=== PATIENT | male | born 1980 ===

== ENCOUNTER 2017-03-24 06:33 | Inpatient (IN) | payer OTHER ==
[~2017-03-24] VITALS: Ht 177.8 cm; Wt 78.9 kg
[2017-03-24] VITALS (19 sets, daily range): BP systolic 106–125; BP diastolic 52–95
[~2017-03-24 06:33] MED LIST: LR 1000ml 1,000 ML IV SCH
[2017-03-24] MEDS ORDERED: ceFAZolin sod 2 GM in D5W 110 ML IVPB ONE (07:00)
[2017-03-24] MEDS ORDERED: Thrombin 5000 units TOPIC ONE (07:26)
[2017-03-24] MEDS ORDERED: Vancomycin 1gm inj IVPB ONE (07:27)
[2017-03-24] MEDS ORDERED: Gelfoam Absorbable 1gm powder pkt TOPIC ONE ×2 (07:27→10:43)
[2017-03-24] MEDS ORDERED: Thrombin 5000 units spray kit TOPIC ONE ×2 (07:27→10:43)
[2017-03-24] MEDS ORDERED: Bacitracin 50000 Units Vial ONE (07:27)
[2017-03-24] MEDS ORDERED: Bupivacaine w/Epi 0.5% 30ml Vial INJ ONE (07:27)
[2017-03-24] MEDS ORDERED: NKM (07:31)
[2017-03-24] MEDS ORDERED: Bacitracin Oint 15gm Tube TOPIC ONE (07:34)
[2017-03-24] MEDS ORDERED: TRAMADOL HCL50 MG ORAL (07:54)
[2017-03-24] MEDS ORDERED: OMEPRAZOLE20 M3 ORAL (07:54)
[2017-03-24] MEDS ORDERED: IBUPROFEN800 M1 PO (07:54)
--- NOTE | 2017-03-24 08:30 | Pre-Procedure Note/Attestation ---
Pre-Procedure Note/Attestation Complete Prior to Procedure Procedure Narrative: C456 PSF, laminotomy Indications for Procedure Pre-Operative Diagnosis: c456 pseudoarthrosis Attestation I attest that I discussed the nature of the procedure; its benefits; risks and complications; and alternatives (and the risks and benefits of such alternatives ), prior to the procedure, with the patient (or the patient's legal motor vehicle representative). I attest that, if there was a reasonable possibility of needing a blood transfusion, the patient (or the patient's legal motor vehicle representative) was given the [facility] standardized written summary, pursuant to the Johnny Juliann Blood Safety Act ([place] Health and Safety Code # 1645, as amended). I attest that I re-evaluated the patient just prior to the surgery and that there has been no change in the patient's H&P, except as documented below: CURTIS LUCERO Mar 24, 2017 08:30
[2017-03-24] MEDS ORDERED: LR 1000ml 1,000 ML IVLG SCH (10:18)
--- NOTE | 2017-03-24 10:25 | Anethesia Preoperative Eval ---
Anesthesia Pre-op PMH/ROS General Date of Evaluation: Mar 24, 2017 Time of Evaluation: 08:20 Anesthesiologist: Gael ASA Score: ASA 1 Mallampati Score Class I : Soft palate, uvula, fauces, pillars visible Class II: Soft palate, uvula, fauces visible Class III: Soft palate, base of uvula visible Class IV: Only hard plate visible Mallampati Classification: Class II Surgeon: Trey Diagnosis: Cervical radiculopathy Surgical Procedure: Posterior cervical fusion with instrumentation Family History: no anesthesia problems Allergies: Coded Allergies: NAPROXEN (Verified Allergy, Severe, swelling/ rash, 03/24/17) Medications: see eMAR Past Medical History Cardiovascular: Denies: CAD, HTN, TN, arrhythmia, other, valve dz Pulmonary: Denies: COPD, APRIL, asthma, other Gastrointestinal/Genitourinary: Denies: CRI, ESRD, GERD, other Neurologic/Psychiatric: Denies: CVA, TIA, dementia, depression/anxiety, other Endocrine: Denies: DM, hypothyroidism, other, steroids HEENT: Denies: EAGLE (L), EAGLE (R), cataract (L), cataract (R), glaucoma, other Hematology/Immune: Denies: DVT, anemia, bleeding disorder, other Musculoskeletal/Integumentary: Denies: DDD, DJD, OA, RA, edema, other PMH Narrative: Denies significant PMH PSxH Narrative: ACDF Anesthesia Pre-op Phys. Exam Physician Exam Last Vital Signs Date Time Temp Pulse Resp B/P Pulse Ox O2 Delivery O2 Flow Rate FiO2 03/24/17 07:08 97.1 68 18 109/73 99 Room Air Constitutional: NAD Neurologic: CN 2-12 intact Cardiovascular: RRR, no M/R/G Respiratory: CTA Gastrointestinal: S/NT/ND Airway Exam Mallampati Score: Class II MO: full ROM: full Teeth: intact Anesthesia Pre-op A/P Labs WNL Studies Pre-op Studies: EKG - NSR Risk Assessment & Plan Assessment: Healthy male for posterior cervical fusion Plan: GETA, Applegate scope intubation, SedLine monitor Status Change Before Surgery: No Pre-Antibiotics Drug: Ancef Given Within 1 Hr of Incision: Yes Time Given: 08:30 JIMMY TOLENTINO M.D. Mar 24, 2017 10:25
--- NOTE | 2017-03-24 10:26 | Immediate Post-Op Evaluation ---
Immediate Post-Op Evalulation Immediate Post-Op Evalulation Procedure: Posterior cervical fusion with instrumentation Date of Evaluation: Mar 24, 2017 Time of Evaluation: 12:25 IV Fluids: 1300 Urinary Output: 500 Blood Pressure Systolic: 125 Blood Pressure Diastolic: 90 Pulse Rate: 98 Respiratory Rate: 14 O2 Sat by Pulse Oximetry: 100 Temperature (Fahrenheit): 97.2 Pain Score (1-10): 0 Nausea: No Vomiting: No Complications No complication Patient Status: reacts, patent, extubated, none Hydration Status: adequate Drug: Ancef Given Within 1 Hr of Incision: Yes Time Given: 08:30 JIMMY TOLENTINO M.D. Mar 24, 2017 10:26
[2017-03-24] MEDS ORDERED: LORazepam Inj 2mg/ml 1ml IV PRN ×2 (10:30)
[2017-03-24] MEDS ORDERED: LR 1000ml 1,000 ML IV SCH (10:30)
--- NOTE | 2017-03-24 11:54 | Brief Operative Note ---
Immediate Post Operative Note Operative Note Pre-op Diagnosis: c456 pseudoarthrosis Procedure: c456 PSF, B c56 laminoforaminotomy Post-op Diagnosis: same as pre-op Findings: consistent w/pre-op dx studies Surgeon: concepcion Anesthesiologist: solitario Anesthesia: general Specimen: none Complications: none Condition: stable Estimated Blood Loss: volume - 500 Drains: hemovac Implant(s) used?: Yes - bacterin bone, spinal elements screws CURTIS LUCERO Mar 24, 2017 11:54
[2017-03-24] MEDS ORDERED: traMADol 50mg tab ORAL PRN ×2 (12:00→22:15)
[2017-03-24] MEDS ORDERED: Hydromorphone 0.5mg/0.5ml inj ONE (12:39)
[2017-03-24] MEDS: Hydromorphone 0.5mg/0.5ml inj IVP PRN ×2 (12:44→13:03)
[2017-03-24] MEDS: Meperidine 25mg/0.5ml Inj IV PRN ×2 (12:49→13:19)
[2017-03-24] MEDS ORDERED: HYDROmorphone 1mg/ml Carpuject IVP PRN (15:00)
--- NOTE | 2017-03-24 15:15 | Diagnostic Imaging Report ---
Indications: Neck and bilateral upper extremity pain, posterior cervical fusion Technique: Above procedure including fluoroscopy performed by Dr. Yang. Portable intraoperative spot film images of the cervical spine performed in PA and lateral projections. Findings: Comparison: None Initial image demonstrates prior fusion of the C4-5 and C5-6 disc spaces, surgical implement overlying the posterior elements at the C4-5 level. Subsequent images demonstrate placement of bilateral pedicle screws at C4-C6, bridged by longitudinal rods bilaterally. IMPRESSION: Surgical changes as described
[2017-03-24] MEDS ORDERED: HYDROmorphone 1mg/ml Carpuject SUBQ PRN ×2 (15:30→22:15)
[2017-03-24] MEDS ORDERED: Metoclopramide 10mg/2ml Inj IVP PRN (15:30)
[2017-03-24] MEDS ORDERED: Acetaminophen 650 MG SUPP RECTAL PRN (15:30)
[2017-03-24] MEDS ORDERED: Milk of Magnesia 30ml Ud ORAL PRN (15:30)
[2017-03-24] MEDS ORDERED: Norco 7.5mg/325mg tab ORAL PRN ×2 (15:30)
[2017-03-24] MEDS ORDERED: Norco 5mg/325mg tab ORAL PRN (15:30)
[2017-03-24] MEDS ORDERED: Naloxone 0.4mg/ml Inj IVP PRN (15:30)
[2017-03-24] MEDS: D5 1/2NS 1,000 ML IV SCH (16:11)
[2017-03-24] MEDS: ceFAZolin sod 1 GM in D5W 55 ML IV SCH (17:16)
[2017-03-24] MEDS: Docusate 100mg cap ORAL SCH (17:16)
--- NOTE | 2017-03-24 17:31 | Operative Note - Dictated ---
DATE OF OPERATION: 03/24/2017 PREOPERATIVE DIAGNOSES: 1. Status post cervical fusion C4 through C6 with pseudoarthrosis. 2. Broken hardware at C6. 3. 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 POSTOPERATIVE DIAGNOSES: 1. Status post cervical fusion C4 through C6 with pseudoarthrosis. 2. Broken hardware at C6. 3. 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 PROCEDURES: 1. Posterior segmental fusion C4 through C6. 2. Posterior segmental instrumentation using spinal elements and lateral mass screws. 3. Use of local autograft as well as Bacterin bone allograft. 4. Laminal foraminotomy bilaterally at C5 and C6 with foraminotomy at C5-C6. 5. Use of operating microscope. 6. Use of fluoroscopy. 7. Neurodiagnostic monitoring. ESTIMATED BLOOD LOSS: 500 mL. COMPLICATIONS: None. FINDINGS: 1. Notable gross movement at C5-C6. 2. Neovascularization with extensive epidural vein formation at left C5-C6. INDICATIONS: The patient is a very pleasant 37-year-old gentleman, who previously underwent two-level anterior cervical diskectomy and fusion at C4, C5, and C6. Pseudoarthrosis developed and subsidence at both levels, but primarily at C5-C6 as the patient has failed conservative care and had ongoing pain in neck with radiation to both upper extremities, right worse than left. Surgical intervention was recommended. The patient elected to proceed. RISK NOTE: The patient was explained in detail the risks and benefits of surgery to include, but not be limited to those of bleeding, infection, damage to nerves, vessels, tendons, anesthetic risk, allergic reaction, aspiration, and possibly . The patient understood and wished to proceed. OPERATIVE PROCEDURE IN DETAIL: The patient was taken to the operative suite. After general endotracheal anesthesia was obtained, Flores catheter was placed. Pressure Gao pins were attached in a sterile standard fashion. The patient was then turned prone on to a radiolucent table with chest bolsters. The Gao was attached to the head of table attachment. Knees were bent. All bony prominences were well padded. The posterior neck wound was prepped and draped in the usual sterile fashion. A midline incision was marked out at C3 through C7. The incision was sharply carried down through subcutaneous and subperiosteal dissection was carried out. Care was taken to avoid injury to the facet capsule at C3-C4 and at C6-C7. Fluoroscopic imaging verified positions. At this point, self-retaining retractors were put into place. All screw holes for the lateral masses were pre-drilled using the high-speed drill as well as a 12 mm drill. Bone wax was applied to all the screw holes. Please note that the C4 screws were applied (12 mm spinal element screws). At this point, the operating microscope was brought into place and using a high-speed drill, laminal foraminotomy was performed on the left first at C5 and C6 and the medial facetectomy was performed. Extensive epidural vein formation was encountered. FloSeal was applied to stop the epidural bleeding. Once satisfied with the decompression (as performed with high-speed drill, micro curettes, and Kerrison punch), the decision was made to pack this area and performed in an identical fashion laminal foraminotomy on the right side. Once this was completed, copious irrigation was performed. Meticulous hemostasis was achieved. High-speed drill was used to perform corticotomy of the lamina of C4, C5, and C6. A piece of Bacterin bone was cut in half after being reconstituted in saline and blood. Local autograft bone from the laminal foraminotomies was also harvested using an on spot bone trap. The bone graft was applied. The bone graft was measured and noted to fit appropriately. At this point prior to applying the bone graft, the pre-dural screw holes were filled with the appropriate sized 12 mm lateral mass screws at C5 and C6. The C4 screws were already in place. Fluoroscopically, they were noted to be in good position as verified. At this point, the appropriate sized rods were cut to length, applied to the screw heads, and the locking cap was applied and torqued to the appropriate level. Once satisfied, copious irrigation was performed. The bone graft was then applied onto the lamina as well as the interfacet space. Decision was made to close. The patient did receive a total of 1 g of vancomycin, 2/3 of which was placed subfascial and 1/3 of which was placed suprafascial. Fascia was repaired using #1 Vicryl. Please note that a subfascial Hemovac drain was applied and was sewn in. At this point, once the fascia was repaired, copious irrigation was performed. The remainder of the vancomycin was applied suprafascially. The skin was then repaired using 2-0 Vicryl and then with a running subcuticular 4-0 Monocryl. Dermabond was then applied. Sterile dressing was applied. Please note that drain was sewn in. At this time, the patient was detached from the Slater headrest and was turned onto his back. The Gao pins were then removed. No bleeding was encountered. The patient was subsequently awakened, extubated, and transferred to recovery room in stable condition. [facility] Jaclyn Yang DR: SIRISHA JOB#: [id number] CC:
[2017-03-24] MEDS ORDERED: Transderm Scop 1.5mg TDERMAL ONE ×2 (22:15→22:30)
[2017-03-24] MEDS ORDERED: oxyCODONE 5mg IR tab ORAL PRN (22:15)
[2017-03-24] MEDS ORDERED: Cyclobenzaprine 10mg Tab ORAL PRN (22:15)
[2017-03-24] MEDS ORDERED: Chloraseptic Spray 20mL Bottle ORAL PRN (22:15)
[2017-03-24] MEDS ORDERED: Norco 10mg/325mg tab ORAL PRN (22:15)
[2017-03-24] MEDS: HYDROmorphone 1mg/ml Carpuject SUBQ PRN (23:35)
[2017-03-25] VITALS: BP 110/69
[2017-03-25] MEDS: ceFAZolin sod 1 GM in D5W 55 ML IV SCH ×2 (00:28→10:27)
[2017-03-25] MEDS: D5 1/2NS 1,000 ML IV SCH ×3 (02:22→21:44)
[2017-03-25 04:00] VITALS: BP 113/68
--- NOTE | 2017-03-25 04:00 | Consultation ---
DATE OF CONSULTATION: 03/24/2017 CONSULTING PHYSICIAN: Sixto Zhao M.D. REFERRING PHYSICIAN: Awais Yang M.D. REASON FOR CONSULTATION: Acute pain consult. HISTORY OF PRESENT ILLNESS: Dear Dr. Awais Yang, Thank you kindly for consulting me to evaluate and render an opinion as to how to proceed in the management of the patient's acute postoperative cervical spine pain, revision cervical spine instrumentation surgery pain. The patient is a 37-year-old, gentleman with a lengthy history of neck pain after work-related injury. He underwent previous anterior cervical spine fusion surgery in 2014, but had persistent pain complaints. He began following with Dr. Fran Mallory, outpatient pain management, who placed him on a potent Butrans weekly opioid narcotic patch for severe pain control. The patient with chronic neck pain, on chronic opioid usage, often had difficulty with pain control. Such was the case with this patient today after his posterior cervical spine fusion surgery. Not unexpectedly with chronic opioid use, he complained of severe refractory pain despite multiple bolus doses of pain medications including Dilaudid. He consulted me at this time for acute pain consultation. I saw the patient at bedside. We performed a detailed history and physical examination. I spoke with multiple nurses and spent over 75 minutes in consultation with an additional 30 minutes in medical record review. PAST MEDICAL HISTORY: 1. Acute postoperative cervical spine pain, status post revision cervical spine surgery, posterior-approach by Dr. Awais Yang in February 2017. 2. Work-related injury. 3. Chronic neck pain with chronic opioid usage, followed by outpatient pain doctor Dr. Fran Mallory. MEDICATIONS AT HOME: 1. Butrans narcotic patch weekly 20 mg. 2. P.r.n. tramadol. 3. NSAIDS. ALLERGIES: Naproxen. PAST SURGICAL HISTORY: Anterior cervical spine surgery in 2014. SOCIAL HISTORY: The patient lives at home with his and children. He denies marijuana or tobacco usage. He drinks alcohol rarely. PAST SURGICAL HISTORY: Previous cervical spine surgery. REVIEW OF SYSTEMS: Per attending physician. FAMILY HISTORY: Noncontributory. PHYSICAL EXAMINATION: GENERAL: Age 37. Height 5 foot 9 inches. Weight 175 pounds. Body mass index 25. VITAL SIGNS: Pain level 8/10 on visual analog pain scale. Afebrile, pulse 84, respirations 20, blood pressure 106/52, and pulse oximetry 99% on supplemental oxygen. HEENT: Normocephalic and atraumatic. Posterior cervical spine dressing clean and dry with Hemovac drain holding suction. CHEST: Clear to auscultation. HEART: Regular rate and rhythm. ABDOMEN: Soft. Positive bowel sounds. GENITOURINARY: Deferred. NEUROLOGIC: Moved all extremities x4. Detailed neurologic exam per Dr. Yang. DIAGNOSTIC TESTING: Shows a 12-lead EKG, normal sinus rhythm, ventricular rate 68. No evidence for acute cardiac ischemia. Pulmonary function testing shows within normal limits. Normal spirometry, 03/20/2017. LABORATORY STUDIES: From 03/20/2017 shows glucose 83, BUN 13, creatinine 1.0, sodium 140, potassium 4.5, chloride 103, bicarbonate 28, and calcium 10.1. Total protein 7.9, albumin 4.6, total bilirubin 1.3, alkaline phosphatase 81, AST 62, ALT 65. INR 0.9 and PTT 25. White count 9, hematocrit 44, and platelets 350,000. IMPRESSION: 1. Acute postoperative cervical spine pain, status post revision cervical spine surgery, posterior-approach by Dr. Awais Yang in February 2017. 2. Work-related injury. 3. Chronic neck pain with chronic opioid usage, followed by outpatient pain doctor Dr. Fran Mallory. TREATMENT RECOMMENDATIONS: To help with this patient's pain control, I have devised the following analgesic plan. As the patient has been following with Dr. Fran Mallory, outpatient pain management, and has been using potent Butrans opioid narcotic patch for many months, I devised the following analgesic plan. I started him on Dilaudid 1 mg subcutaneously every 3 hours as needed for 10/10 pain. The patient has responded to Soma in the past, and I have ordered Soma 350 mg orally every 8 hours as needed for muscle spasm. Tramadol had been used almost anecdotally recently by Dr. Fran Mallory. That had minimal effect here in the hospital. The patient has tolerated hydrocodone after his previous neck surgery, and I have ordered Ferris 10/325 mg tablets with 1 or 2 pills for mild or moderate pain respectively. I will order a Chloraseptic spray to the bedside for any topical sore throat complaint relief. I have ordered Protonix 40 mg nightly for GI ulcer prophylaxis, and I have also ordered a breakthrough dose of Mylanta 30 mL q.6 h. p.r.n. for any GERD symptom exacerbation. I have placed the patient on Colace as a stool softener. I have added p.r.n. dose of milk of magnesia as a rescue laxative. I have left a prescription for Ferris and Soma for quantity 50 and 40 respectively for outpatient usage. If he has any itching symptoms, I have ordered Benadryl 25 mg orally q.6 h. p.r.n. I also ordered Zofran 4 mg intravenously every 4 hours p.r.n. for nausea and vomiting with a breakthrough dose of Phenergan 12.5 mg intramuscularly every 8 hours p.r.n. for refractory nausea. I have also ordered a dose of clonidine in case of any hypertensive crisis until the hospitalist can modify the orders. I would order an incentive spirometry and encourage good pulmonary toilet. Sequential compression pneumatic devices have been ordered for DVT prophylaxis. Comprehensive review of the medical records was performed. Record review included multiple reports including utilization review and surgical authorization by authorizing surgery as certified. I also reviewed multiple reports from today's date of surgery, 03/24/2017, from [facility] including consent for surgical treatment, consent for anesthesia, consent for blood products, medication administration record, medication reconciliation order form, PACU record, PACU orders, anesthesia record, pre and post anesthesia evaluation record, postoperative spine surgical orders and postoperative surgery report by Dr. Yang, guidelines for DVT prophylaxis, guidelines for prophylactic antibiotics, 24-hour medical/surgical flow sheet, intraoperative nursing record, initial nursing assessment. Further record review included preoperative history and physical by Dr. Antonio Curry on 03/20/2017, along with laboratory studies, pulmonary function testing, and a 12-lead EKG. Sixto Zhao M.D. DR: KOFI JOB#: [id number] CC:
[2017-03-25] MEDS: HYDROmorphone 1mg/ml Carpuject SUBQ PRN ×2 (04:30→08:41)
[2017-03-25] MEDS: Norco 10mg/325mg tab ORAL PRN ×5 (06:58→21:55)
--- NOTE | 2017-03-25 07:45 | Progress Note ---
DATE: 03/25/2017 ACUTE PAIN MANAGEMENT PHYSICIAN PROGRESS NOTE MEDICATIONS: Medication administration record reviewed. Medications include Mylanta, Catapres, Flexeril, Benadryl, Colace, [place], Dilaudid, milk of magnesia, Demerol, Narcan, Zofran, Protonix, Chloraseptic, Phenergan, and Soma. LABORATORY STUDIES: No interval laboratory studies. OBJECTIVE: VITAL SIGNS: Pain level 6/10 on the visual analog pain scale. Afebrile. Pulse 89, respirations 18, blood pressure 113/68, and oxygen saturation 96% on supplemental oxygen. I saw the patient at bedside. After discussion with the nurse RN, Arlette. The patient is breathing comfortably after his neck surgery. He is swallowing and phonating within normal limits. Output from the Hemovac drain was emptied last at 11 p.m. with 50 mL. Interval output from 11 p.m. last night and 6 a.m. this morning was approximately 25 mL. The Hemovac indwelling cervical spine drain catheter remains on infection at this time. The patient appears grossly neurologically intact. He is moving all extremities x4. He is not yet coming out of bed. The patient does still have significant discomfort with moving around. He last had a Dilaudid injection at 4:30 this morning and now, two and half hours later, I have asked the nurse to dose him with Rainelle tablets. I have left a prescription for Rainelle and Soma for outpatient usage. I have also asked the nurse to place a Chloraseptic spray at the bedside to help with sore throat complaints. I have streamlined the patient's medication list to reduce the risk of medication administration errors. I did encourage aggressive use of incentive spirometer. The patient does have a good appetite and has no nausea symptoms. We will see how the patient advances with ambulation today. He is continued to monitor the output from the cervical spine drain in order to expedite discharge planning. I will continue this breakthrough Dilaudid injections while encouraging the hydrocodone and Soma to help wean off narcotics. Sixto Zhao M.D. DR: DB/PM :58 JOB#: [id number] CC:
[2017-03-25 08:00] VITALS: BP 110/59
--- NOTE | 2017-03-25 08:27 | Orthopedic Spine Progress Note ---
Ortho Spine - Progress Note Subjective Symptoms: c/o post-op neck pain Objective Vital Signs: Last 24 Hour Vital Signs Date Time Temp Pulse Resp B/P Pulse Ox O2 Delivery O2 Flow Rate FiO2 03/25/17 08:00 98.1 89 17 110/59 96 Nasal Cannula 3.0 03/25/17 05:00 97.9 03/25/17 04:00 98.9 89 18 113/68 96 Nasal Cannula 3.0 03/25/17 00:00 98.8 87 16 110/69 96 Room Air 03/24/17 20:28 97.9 03/24/17 20:00 98.8 100 18 117/77 98 Nasal Cannula 4.0 03/24/17 18:27 97.9 84 20 106/52 95 Nasal Cannula 2.0 03/24/17 17:30 97.0 86 20 110/71 95 Nasal Cannula 2.0 03/24/17 16:29 97.9 84 20 106/52 95 Nasal Cannula 2.0 03/24/17 14:30 98.9 92 20 115/82 98 Nasal Cannula 2.0 03/24/17 14:09 98.0 03/24/17 14:09 98.0 03/24/17 14:03 98.0 88 20 114/82 99 Nasal Cannula 3.0 03/24/17 13:59 88 20 114/82 99 Nasal Cannula 3.0 03/24/17 13:45 85 20 123/87 95 Nasal Cannula 3.0 03/24/17 13:30 81 20 115/86 95 Nasal Cannula 3.0 03/24/17 13:19 90 20 120/90 96 Nasal Cannula 3.0 03/24/17 13:14 82 20 120/90 96 Nasal Cannula 3.0 03/24/17 13:03 83 20 118/89 100 Nasal Cannula 3.0 03/24/17 12:49 73 20 124/95 100 Nasal Cannula 3.0 03/24/17 12:44 73 20 124/91 100 Nasal Cannula 3.0 03/24/17 12:35 75 20 121/86 100 Nasal Cannula 3.0 03/24/17 12:26 98 14 100 03/24/17 12:25 91 20 121/85 100 Simple Mask 8.0 03/24/17 12:20 94 20 121/90 100 Simple Mask 8.0 03/24/17 12:15 97.2 97 20 125/90 100 Simple Mask 8.0 I&O: Intake and Output 03/24/17 03/25/17 19:00 07:00 Intake Total 2300 ml 1505 ml Output Total 900 ml 750 ml Balance 1400 ml 755 ml Intake Oral 300 ml IV Total 2300 ml 1205 ml Output Urine Total 400 ml 700 ml Drainage Total 50 ml Estimated Blood Loss 500 ml # Voids 1 Wound: clean, intact Drains: hemovac Neuro Status: normal Assessment Procedure Performed: c456 PSF, B c56 laminoforaminotomy Plan Plan: PT, pain management, d/c antibiotics, d/c drain CURTIS LUCERO Mar 25, 2017 08:27
[2017-03-25] MEDS ORDERED: Midazolam 2mg/2ml Inj ONE (08:30)
[2017-03-25] MEDS ORDERED: Nimbex 2mg/ml Inj 10ML IVP ONE (08:30)
[2017-03-25] MEDS ORDERED: fentaNYL 100 mcg/2 mL IV ONE (08:30)
[2017-03-25] MEDS ORDERED: NS Irrig 1000ml ONE (08:30)
[2017-03-25] MEDS ORDERED: Sterile Water Irrig 1000ml IRRIG ONE (08:30)
[2017-03-25] MEDS ORDERED: Propofol 10mg/ml 100ml btl IV ONE (08:30)
[2017-03-25] MEDS ORDERED: LR 1000ml ONE (08:30)
--- NOTE | 2017-03-25 09:05 | 48 Hour Post Anesthesia Eval ---
Post Anesthesia Evaluation Procedure: Posterior cervical fusion with instrumentation Date of Evaluation: Mar 25, 2017 Time of Evaluation: 07:03 Blood Pressure Systolic: 110 0: 59 Pulse Rate: 89 Respiratory Rate: 17 Temperature (Fahrenheit): 98.1 O2 Sat by Pulse Oximetry: 96 Airway: patent Nausea: No Vomiting: No Pain Intensity: 3 Cardiopulmonary Status: Stable Follow-up Care/Observations: 0 Post-Anesthesia Complications: 0 Follow-up care needed: N/A Luis Velez MD Mar 25, 2017 09:05
[2017-03-25] MEDS: Docusate 100mg cap ORAL SCH ×2 (10:27→18:10)
[2017-03-25 12:00] VITALS: BP 131/74
[2017-03-25 16:00] VITALS: BP 115/80
[2017-03-25] MEDS ORDERED: Tubing IV Secondary IV ONE (17:32)
[2017-03-25] MEDS ORDERED: D5 1/2NS 1000ml IV ONE (17:32)
[2017-03-25 20:00] VITALS: BP 128/82
[2017-03-25] MEDS ORDERED: Tamsulosin 0.4mg cap ORAL SCH (21:00)
[2017-03-26] VITALS: BP 121/84
[2017-03-26] MEDS: HYDROmorphone 1mg/ml Carpuject SUBQ PRN (00:52)
[2017-03-26 04:00] VITALS: BP 115/77
[2017-03-26] MEDS: Norco 10mg/325mg tab ORAL PRN ×4 (05:07→13:38)
[2017-03-26] MEDS: D5 1/2NS 1,000 ML IV SCH (07:19)
[2017-03-26 08:00] VITALS: BP 124/65
--- NOTE | 2017-03-26 08:41 | Orthopedic Spine Progress Note ---
Ortho Spine - Progress Note Subjective Symptoms: c/o post-op neck pain, improved - as compared to pre-op Objective Vital Signs: Last 24 Hour Vital Signs Date Time Temp Pulse Resp B/P Pulse Ox O2 Delivery O2 Flow Rate FiO2 03/26/17 08:00 98.1 107 18 124/65 96 Room Air 03/26/17 04:00 97.4 92 15 115/77 97 Room Air 03/26/17 00:00 97.7 96 16 121/84 98 Room Air 03/25/17 20:00 97.9 101 16 128/82 97 Room Air 03/25/17 16:00 98.6 98 17 115/80 93 Room Air 03/25/17 12:00 98.2 92 18 131/74 95 Nasal Cannula 2.0 03/25/17 09:11 98.1 03/25/17 09:05 89 17 96 I&O: Intake and Output 03/25/17 03/26/17 19:00 07:00 Intake Total 450 ml 1340 ml Output Total 1150 ml 300 ml Balance -700 ml 1040 ml Intake Oral 350 ml 240 ml IV Total 100 ml 1100 ml Output Urine Total 1150 ml 300 ml Wound: clean, intact Drains: none Neuro Status: normal Assessment Procedure Performed: c456 PSF, B c56 laminoforaminotomy Plan Plan: PT, pain management, discharge plan CURTIS LUCERO Mar 26, 2017 08:41
[2017-03-26] MEDS: Docusate 100mg cap ORAL SCH (09:33)
[2017-03-26 12:00] VITALS: BP 124/65
[2017-03-26] MEDS ORDERED: NORCO 10-325 T1 EACH ORAL ×2 (12:15)
[2017-03-26] MEDS ORDERED: SOMA350 MG PO (12:18)
[2017-03-26] MEDS ORDERED: D5 1/2NS 1000ml IV ONE (14:24)
--- NOTE | 2017-03-26 17:16 | Progress Note ---
DATE: 03/26/2017 ACUTE PAIN MANAGEMENT PHYSICIAN PROGRESS NOTE MEDICATIONS: Medication administration record reviewed. Medications include Phenergan, Chloraseptic spray, Protonix, Narcan, Demerol, milk of magnesia, [place], Colace, Benadryl, Catapres, Soma and Mylanta. LABORATORY STUDIES: No interval laboratory studies. Vital signs within normal limits, afebrile, pulse 98, respirations 20, blood pressure 124/65, and oxygen saturation 94% on room air. I saw the patient at bedside with a female magnesium mill operator after discussing with the nurse RN, . Surgeon, Dr. Yang evaluated the patient yesterday, removed his indwelling cervical spine drain catheter from the posterior neck wound. There were no complications. The patient continues with wearing his Saragosa collar today. He has been ambulating well out of the bed and has been alternating breakthrough doses of as p.r.n. analgesics including [place], Soma and subcutaneous Dilaudid. I did leave a prescription for [place] and Soma for outpatient usage. The patient has been advancing his diet without any difficulty. There is no nausea. The patient denies any short of breath or chest pain. The patient follow up with Dr. Yang in the outpatient surgical clinic for surgical followup. The patient is alert and oriented x3 with normal vital signs. I see no contraindication for discharge trial home at this time. The patient has been ambulating well without assistance and at age 37, he did quite well postoperatively. Sixto Zhao M.D. DR: LOPEZ JOB#: [id number] CC:
--- NOTE | 2017-03-27 09:18 | Discharge Summary ---
Discharge Summary Hospital Course Date of Admission Mar 24, 2017 at 06:33 Date of Discharge Mar 26, 2017 at 14:25 Admitting Diagnosis HPI Jo Flower is a 37 year old male who was admitted on Mar 24, 2017 at 06:33 for Status Post Cervical Spine Discectomy Hospital Course [id number] Discharge Discharge Disposition Patient was discharged to Home (01) Discharge Diagnoses: Makenzie Choi NP Mar 27, 2017 09:18
--- NOTE | 2017-03-27 12:30 | Discharge Summary 2 SIG ---
DATE OF ADMISSION: 03/24/2017 DATE OF DISCHARGE: 03/26/2017 CLINICAL PRACTICE CONSULTANT: Sixto Zhao M.D. BRIEF HOSPITAL COURSE: The patient is a 37-year-old gentleman with lengthy history of neck pain after work-related injury. He underwent previous anterior cervical spine fusion surgery in 2014, but had persistent pain. He was followed up by pain management doctor and has placed him on potent Butrans weekly opioid narcotic patch for severe pain control, however, symptoms persisted and has failed conservative care and had continued ongoing pain in the neck with radiation to both upper extremities the right worse than left. He was admitted on 03/24/2017 and underwent segmental fusion on C5-C6 and laminal foraminotomy bilaterally at C5-C6 with foraminotomy at C5-C6. Postoperatively, he was given pain management and was seen by Dr. Zhao. He was given Dilaudid, Soma, and [place]. He was encouraged to use incentive spirometry and was given SCDs for DVT prophylaxis. He underwent physical and occupational therapy and advised to wear his neck collar. He has been ambulating well and tolerating diet without any difficulty. He was then discharged to follow up with Dr. Yang in outpatient surgical clinic for surgical follow up. FINAL DIAGNOSIS: Status post posterior segmental fusion on C5-C6 and laminal foraminotomy on C5-C6 (refer to operative report). Awais Yang M.D. I have been assigned to dictate discharge summary on this account and I was not involved in the patient's management. Makenzie Choi N.P. DR: JONAH JOB#: [id number] CC:
== END 2017-03-26 14:25 | disposition home or self-care (01) | DRG 472 ==
LOC: SDSOVERFLO 06:33 → EDSEX 08:30 → 3E 14:30
DX: T84.216A Breakdown (mechanical) of internal fixation device of vertebrae, initial encounter (principal); M96.0 Pseudarthrosis after fusion or arthrodesis; M48.02 Spinal stenosis, cervical region; Z79.891 Long term (current) use of opiate analgesic; G89.29 Other chronic pain; G89.18 Other acute postprocedural pain
CPT/HCPCS: 36415; 72040; 76001; 86850; 86900; 86901; 87081; 94003; 94150; J2180; J2250; J2405